=== PATIENT | female | born 1950 | race Caucasian/White ===

== ENCOUNTER 2021-07-10 09:00 | Outpatient (RCR) | payer MEDICARE, OTHER, SELFPAY ==
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
--- NOTE | 2021-04-12 11:03 | HP.PTREVAL ---
JONNY NORTON, It has been my pleasure to treat ALEJANDRO MCDONALD over the last 9 visits for T7 FX, THORACIC DDD, LUMBAR RADIC AND DDD & CHRONIC PAIN SYNDROME. Please see the progress note below for an update on the physical therapy plan of care! Subjective: PATIENT REPORTS SHE HAS LEARNED A LOT AND IS BENEFITING FROM THERAPY BUT HOPES SHE CAN MAKE A LOT MORE IMPROVEMENT. PATIENT REPORTS SHE IS STILL HAVING A LOT OF PAIN THOUGH. JO SCHEDULED NEXT THURSDAY. THIS WILL BE FIRST JO IN A LONG LONG TIME. PATIENT REPORTS SHE WANTS TO CONTINUE PT BECAUSE SHE FEELS IT IS HELPING HER. Objective/Function: PATIENT WAS SEEN TODAY FOR RE-ASSESSMENT OF PROGRESS TOWARD THE SET PT GOALS AND THE NEED FOR FURTHER PHYSICAL THERAPY VS READINESS FOR DISCHARGE. PATIENT IS MAKING SOME SLOW PROGRESS WITH AQUATIC THERAPY AND IS A GOOD CANDIDATE TO TRY TO CONTINUE PT FOR FURTHER IMPROVEMENT. UPON EXAM TODAY: THIS PATIENT AMBULATES INDEP'LY INTO PT WITHOUT ANY ASSISTIVE DEVICES OR LOSS OF BALANCE. DECREASED CADANCE. INDEP TRANSFER SIT TO STAND WITHOUT UE ASSIST and with less difficulty compared to initial eval. Motor deficit: ACE UE STRENGTH AND LE STRENGTH GROSSLY 5/5 WITH MMT'ING EXCEPT RIGHT HIP/KNEE 4/5. Sensory deficit: ACE UE AND LE LIGHT TOUCH SENSATION INTACT AND SYMMETRICAL. ROM deficit: ACE UE'S AND LE'S WFL. Dural Signs: NEGATIVE ACE UE'S AND LE'S. THORACIC MVMT LOSS: ACE ROT - MOD. Lumbar mvmt loss: flex - NIL. ext - CARROL. R SG - CARROL. L SG - CARROL. PATIENT C/O INCREASED MID BACK PAIN WITH LUMBAR AND THORACIC ROM TESTING ALL PLANES. PATIENT ALSO WITH C/O PAIN ALONG THE TOP OF HER R FOOT WITH MMT'ING. Core strength: POOR. Palpation: TENDERNESS WITH LIGHT PALPATION OF THE THORACIC AND LUMBAR SPINE REGIONS. Plan Plan: *Add step ups next as tolerated/indicated. CONTINUE 3X'S A WEEK X 10 VISITS FOR. AQUATIC THERAPY FOR PAIN RELIEF, POSTURE CORRECTION/STRENGTHENING, INSTRUCTION IN APPROPRIATE BODY MECHANICS AND ACTIVITY MODIFICATIONS. DLS STARTING WITH A NEUTRAL SPINE PROGRESSING ROM TOLERATED. ACE LE ROM, STRETCHING AND STRENGTHENING. HEP INSTRUCTION. Goals Goal 1:: DECREASE C/O BACK PAIN Goal Time Frame: 4-6 Weeks Goal Progress: Progressing Goal 2:: IMPROVE PERSONAL CARE, LIFTING, WALKING, SITTING, STANDING, SLEEPING, SOCIAL LIFE, TRAVEL AND HOMEMAKING FUNCTION. Goal Time Frame: 4-6 Weeks Goal Progress: Progressing Goal 3:: ISNTRUCT IN PROPHYLAXIS Goal Time Frame: 4-6 Weeks Goal Progress: Progressing Anticipated Interventions Patient/Client Instruction: Educate patient on: Condition, Plan of Care, Risk Factors For the Purpose of:: To improve self management Therapeutic Exercise to Include: Strength training, Body mechanics, Postural training, Flexibilty training, Neuromotor development, In an aquatic setting, Dynamic Lumbar Stabilization For the Purpose of:: To decrease pain, To improve muscle performance and motor function, To increase tolerance to activity/condition/position, To improve ability of physical actions for home/community/work/leisure Cryotherapy (ice pack, ice massage): Yes Thermo therapy (hot pack): Yes For the Purpose of:: To decrease pain, To improve nutrient delivery to tissue Please do not hesitate to contact me at [phone] by phone or if you have questions or concerns regarding this new plan of care! Sincerely, Libby Todd, PT, Cert MDT
--- NOTE | 2021-06-21 15:33 | HP.PTREVAL ---
JONNY NORTON, It has been my pleasure to treat ALEJANDRO MCDONALD over the last 11 visits for T7 FX, THORACIC DDD, LUMBAR RADIC AND DDD & CHRONIC PAIN SYNDROME. Please see the progress note below for an update on the physical therapy plan of care! Subjective: PATIENT REPORTS INCREASED LOW BACK AND RIGHT HIP PAIN SINCE LAST PT VISIT. REPORTS SHE REALLY WANTS TO GET BACK TO AQUTIC THERAPY BECAUSE IT WAS REALLY HELPING. OCCASSIONALLY HAVING RIGHT HIP NUMBNESS AND TINGLING THAT SHOOTS DOWN HER LEG TO HER FOOT. 2 JO'S SINCE LAST VISIT WITH THE LAST ONE BEING ABOUT A WEEK AGO. PATIENT REPORTS THEY HAVE HELPED HER LOW BACK PAIN A LITTLE BIT BUT NOT HER HIP AND RIGHT LE SX'S. Objective/Function: PATIENT WAS SEEN FOR A RE-ASSESSMENT TODAY AND APPEARS TO BE APPROPRIATE TO RESUME PT NOW TOLERATED WITH THE GOAL OF BECOMING INDEP WITH A POOL PROGRAM. PATIENT IS AGREEABLE. THIS PATIENT AMBULATES INDEP'LY INTO PT WITHOUT ANY ASSISTIVE DEVICES OR LOSS OF BALANCE. DECREASED CADANCE. INDEP TRANSFER SIT TO STAND WITHOUT UE ASSIST BUT DIFFICULT. Motor deficit: ACE UE STRENGTH AND LE STRENGTH GROSSLY 5/5 WITH MMT'ING EXCEPT RIGHT HIP/KNEE 4/5. Sensory deficit: ACE UE AND LE LIGHT TOUCH SENSATION INTACT AND SYMMETRICAL. ROM deficit: ACE UE'S AND LE'S WFL. Dural Signs: NEGATIVE ACE UE'S AND LE'S. THORACIC MVMT LOSS: ACE ROT - MOD. Lumbar mvmt loss: flex - NIL. ext - CARROL. R SG - CARROL. L SG - CARROL. PATIENT C/O INCREASED MID BACK PAIN WITH LUMBAR AND THORACIC ROM TESTING ALL PLANES. Core strength: POOR. Palpation: TENDERNESS WITH LIGHT PALPATION OF THE THORACIC AND LUMBAR SPINE REGIONS. Plan Plan: CONTINUE 3X'S A WEEK X 10 VISITS FOR. AQUATIC THERAPY FOR PAIN RELIEF, POSTURE CORRECTION/STRENGTHENING, INSTRUCTION IN APPROPRIATE BODY MECHANICS AND ACTIVITY MODIFICATIONS. DLS STARTING WITH A NEUTRAL SPINE PROGRESSING ROM TOLERATED. ACE LE ROM, STRETCHING AND STRENGTHENING. HEP INSTRUCTION. Balance/Gait/Functional tests - Balance/Special Test Scores Oswestry Low Back Score: 24 Goals Goal 1:: DECREASE C/O BACK PAIN Goal Time Frame: 4-6 Weeks Goal Progress: Progressing Goal 2:: IMPROVE PERSONAL CARE, LIFTING, WALKING, SITTING, STANDING, SLEEPING, SOCIAL LIFE, TRAVEL AND HOMEMAKING FUNCTION. Goal Time Frame: 4-6 Weeks Goal Progress: Progressing Goal 3:: ISNTRUCT IN PROPHYLAXIS Goal Time Frame: 4-6 Weeks Goal Progress: Progressing Anticipated Interventions Patient/Client Instruction: Educate patient on: Condition, Plan of Care, Risk Factors For the Purpose of:: To improve self management Therapeutic Exercise to Include: Strength training, Body mechanics, Postural training, Flexibilty training, Neuromotor development, In an aquatic setting, Dynamic Lumbar Stabilization For the Purpose of:: To decrease pain, To improve muscle performance and motor function, To increase tolerance to activity/condition/position, To improve ability of physical actions for home/community/work/leisure Cryotherapy (ice pack, ice massage): Yes Thermo therapy (hot pack): Yes For the Purpose of:: To decrease pain, To improve nutrient delivery to tissue Please do not hesitate to contact me at [phone] by phone or if you have questions or concerns regarding this new plan of care! Sincerely, Libby Todd, PT, Cert MDT
--- NOTE | 2021-07-10 09:57 | HP.PTREVAL ---
JONNY NORTON, It has been my pleasure to treat ALEJANDRO MCDONALD over the last 12 visits for T7 FX, THORACIC DDD, LUMBAR RADIC AND DDD & CHRONIC PAIN SYNDROME. Please see the progress note below for an update on the physical therapy plan of care! Subjective: PATIENT REPORTS THAT SINCE SHE WAS IN LAST SHE HAS SUSTAINED MULTIPLE ARM WOUNDS/CUTS. SAW DR. AQUINO A WEEK AGO AND WAS PRESCRIBED ANTIBIOTICS. NO POOL THERAPY FOR NOW. [address]TH ALISON'T [address] DR. NORTON IN PAIN MGMT PENDING IN THE NEXT WK OR TWO. PATIENT REPORTS NO SIGNIFICANT CHANGES IN HER BACK SINCE LAST RE-CHECK. PATIENT REPORTS SHE IS VERY FRUSTRATED WITH HER SKIN TEARING SO EASILY AND IT INTERFERING WITH AQUATIC THERAPY. STATES SHE CAN'T EVEN CARRY A PURSE ON HER ARM BECAUSE IT LEAVES BRUISES. STATES SHE HAS BEEN TRYING TO DO HER HOME EX'S BUT IT ISN'T THE SAME BENEFIT POOL THERAPY. PATIENT REPORTS SHE STILL DOES NOT WANT TO HAVE SURGERY WAS RECOMMENDED. Objective/Function: PATIENT WAS SEEN FOR RE-ASSESSMENT AND PROGRESS TOWARD SET PT GOALS. SHE IS CURRENTLY NOT ABLE TO GET IN THE WATER FOR THERAPY BECAUSE OF HER ARM WOUNDS. THERE ARE NO SIGNIFICANT CHANGES OVER-ALL SINCE LAST VISIT. SHE IS APPROPRIATE TO BE GIVEN A HEP AND PHYSICIAN RE-CHECK. THIS PATIENT AMBULATES INDEP'LY INTO PT WITHOUT ANY ASSISTIVE DEVICES OR LOSS OF BALANCE. DECREASED CADANCE. INDEP TRANSFER SIT TO STAND WITHOUT UE ASSIST BUT DIFFICULT. Motor deficit: ACE UE STRENGTH AND LE STRENGTH GROSSLY 5/5 WITH MMT'ING EXCEPT RIGHT HIP/KNEE 4/5. Sensory deficit: ACE UE AND LE LIGHT TOUCH SENSATION INTACT AND SYMMETRICAL. ROM deficit: ACE UE'S AND LE'S WFL. Dural Signs: NEGATIVE ACE UE'S AND LE'S. THORACIC MVMT LOSS: ACE ROT - MOD. Lumbar mvmt loss: flex - NIL. ext - CARROL. R SG - CARROL. L SG - CARROL. PATIENT C/O INCREASED MID BACK PAIN WITH LUMBAR AND THORACIC ROM TESTING ALL PLANES. Core strength: POOR. Palpation: TENDERNESS WITH LIGHT PALPATION OF THE THORACIC AND LUMBAR SPINE REGIONS. Plan Plan: FOLLOW UP WITH DR. NORTON. CONSIDER WHEN ABLE: CONTINUE 3X'S A WEEK X 10 VISITS FOR. AQUATIC THERAPY FOR PAIN RELIEF, POSTURE CORRECTION/STRENGTHENING, INSTRUCTION IN APPROPRIATE BODY MECHANICS AND ACTIVITY MODIFICATIONS. DLS STARTING WITH A NEUTRAL SPINE PROGRESSING ROM TOLERATED. ACE LE ROM, STRETCHING AND STRENGTHENING. HEP INSTRUCTION. Balance/Gait/Functional tests - Balance/Special Test Scores Oswestry Low Back Score: 24 Goals Goal 1:: DECREASE C/O BACK PAIN Goal Time Frame: 4-6 Weeks Goal Progress: Not Progressing Goal 2:: IMPROVE PERSONAL CARE, LIFTING, WALKING, SITTING, STANDING, SLEEPING, SOCIAL LIFE, TRAVEL AND HOMEMAKING FUNCTION. Goal Time Frame: 4-6 Weeks Goal Progress: Not Progressing Goal 3:: ISNTRUCT IN PROPHYLAXIS Goal Time Frame: 4-6 Weeks Goal Progress: Progressing Anticipated Interventions Patient/Client Instruction: Educate patient on: Condition, Plan of Care, Risk Factors For the Purpose of:: To improve self management Therapeutic Exercise to Include: Strength training, Body mechanics, Postural training, Flexibilty training, Neuromotor development, In an aquatic setting, Dynamic Lumbar Stabilization For the Purpose of:: To decrease pain, To improve muscle performance and motor function, To increase tolerance to activity/condition/position, To improve ability of physical actions for home/community/work/leisure Cryotherapy (ice pack, ice massage): Yes Thermo therapy (hot pack): Yes For the Purpose of:: To decrease pain, To improve nutrient delivery to tissue Please do not hesitate to contact me at [phone] by phone or if you have questions or concerns regarding this new plan of care! Sincerely, Libby Todd, PT, Cert MDT
--- NOTE | 2021-09-11 12:27 | HP.PT.NRP ---
ALEJANDRO MCDONALD was seen in my office for initial evaluation on 03/13/21. The following Plan of Care was established for this patient: Initial Frequency: 2-3x /Week Initial Duration: 4-6 Weeks Patient/Client Instruction: Educate patient on: Condition, Plan of Care, Risk Factors For the Purpose of:: To improve self management Therapeutic Exercise to Include: Strength training, Body mechanics, Postural training, Flexibilty training, Neuromotor development, In an aquatic setting, Dynamic Lumbar Stabilization For the Purpose of:: To decrease pain, To improve muscle performance and motor function, To increase tolerance to activity/condition/position, To improve ability of physical actions for home/community/work/leisure Cryotherapy (ice pack, ice massage): Yes Thermo therapy (hot pack): Yes For the Purpose of:: To decrease pain, To improve nutrient delivery to tissue This patient was last seen in our office 07/10/21. Pertinent comments regarding their Physical therapy will appear below: This patient has not returned to Physical Therapy and is appropriate to return to MD for further follow-up as needed. At this point I will be discontinuing this patient from physical therapy. I would be happy to see this patient again in the future if found appropriate by the physician. Thank you! Libby Todd, PT, Cert MDT Balance/Gait/Functional tests - Balance/Special Test Scores Oswestry Low Back Score: 24
== END 2021-07-10 19:00 | disposition home or self-care (01) ==
LOC: PT 09:00
PROVIDERS: PCP Family Medicine
DX: S22.009S Unspecified fracture of unspecified thoracic vertebra, sequela (principal); X58.XXXS Exposure to other specified factors, sequela; M46.96 Unspecified inflammatory spondylopathy, lumbar region; M54.16 Radiculopathy, lumbar region; M51.36 Other intervertebral disc degeneration, lumbar region; M79.10 Myalgia, unspecified site; G89.4 Chronic pain syndrome
CPT/HCPCS: 97113; 97162; 97164; 97530

== ENCOUNTER 2021-12-06 11:00 | Outpatient (RCR) | payer MEDICARE, OTHER, SELFPAY ==
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
--- NOTE | 2021-11-07 11:45 | HP.PTREVAL_ITS ---
OTTO ROSARIO, It has been my pleasure to treat ALEJANDRO MCDONALD over the last 8 visits for HIP PAIN, LUMBAR RADIC, DDD AND CHRONIC PAIN SYNDROME.. Please see the progress note below for an update on the physical therapy plan of care! Subjective: PATIENT REPORTS SHE FEELS BETTER WHEN SHE IS IN THE WATER AND SHE CAN DO MORE THINGS IN THE WATER. I FEEL GOOD IN THE FACT THAT I AM DOING BETTER WITH PROPER LIFTING. PATIENT SHE STILL HAS BACK PAIN AND STILL TAKES PAIN MEDICINE 2 TIMES DAY. PATIENT REPORTS SHE CAN STILL ONLY GO UP STEPS ONE AT A TIME DUE TO BACK PAIN. PATIENT IS HOPEFUL THAT IF SHE CONTINUES WATER THERAPY SHE WILL CONTINUE TO IMPROVE. STATES SHE STILL CAN'T REMEMBER HOW TO DO THE EX'S AND HOME ACTIVITIES CORRECTLY CONSISTANTLY YET AND WOULD LIKE MORE INSTRUCTION. STATES SHE FEELS LIKE SHE IS GETTING STRONGER AND WANTS TO CONTINUE WATER THERAPY. PATIENT REPORTS THAT HER BACK PAIN BEFORE SHE STARTED THERAPY WAS HORRIBLE. 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 Objective/Function: PATIENT WAS SEEN TODAY FOR RE-ASSESSMENT OF PROGRESS TOWARD THE SET PT GOALS AND THE NEED FOR FURTHER PHYSICAL THERAPY VS READINESS FOR DISCHARGE. PATIENT IS A GOOD CANDIDATE TO CONTINUE AQUATIC THERAPY BASED ON PROGRESS MADE AND ROOM FOR FURTHER IMRPOVEMENT. SHE IS TRANSFERRING SIT TO STAND BETTER AND REPORTING INCREASED TOLERANCE TO HOUSEWORK. HER CORE AND LE FUNCTIONAL STRENGTH IS SLOWLY IMPROVING AND SHE IS BECOMING INDEP WITH A POOL PROGRAM. SHE IS DEMO'ING IMPROVED ABILITY TO USE GOOD BODY MECHANCICS ADN PROPER POSTURE WITH ADL'S. PATIENT IS AGREEABLE TO CONTINUEING PT. UPON EXAM TODAY: THIS PATIENT AMBULATES INDEP'LY INTO PT WITHOUT ANY ASSISTIVE DEVICES OR LOSS OF BALANCE. DECREASED CADANCE. INDEP TRANSFER SIT TO STAND WITHOUT UE ASSIST AND LESS DIFFICULTY COMPARED TO INITIAL EVAL. Motor deficit: ACE LE STRENGTH GROSSLY 5/5 WITH MMT'ING EXCEPT RIGHT HIP/KNEE 4/5 (OLD INJURY) Sensory deficit: ACE UE AND LE LIGHT TOUCH SENSATION INTACT AND SYMMETRICAL. ROM deficit: ACE LE'S WFL. Dural Signs: NEGATIVE ACE LE'S. THORACIC MVMT LOSS: ACE ROT - MOD. Lumbar mvmt loss: flex - MIN. ext - CARROL. R SG - CARROL. L SG - CARROL. PATIENT C/O INCREASED MID BACK AND LOW BACK PAIN WITH LUMBAR AND THORACIC ROM TESTING ALL PLANES. Core strength: POOR. Palpation: TENDERNESS WITH LIGHT PALPATION OF THE THORACIC AND LUMBAR SPINE REGIONS INTO SACRUM AND HIPS. Plan Plan: CONTINUE AQUATIC THERAPY. *VERY FRAGILE SKIN*. *C/O RIGHT SHLD PAIN FOR NO APPARENT REASON - AVOID INCREASING SHLD PAIN*. AQUATIC THERAPY FOR PAIN RELIEF, POSTURE CORRECTION/STRENGTHENING, INSTRUCTION IN APPROPRIATE BODY MECHANICS AND ACTIVITY MODIFICATIONS. DLS STARTING WITH A NEUTRAL SPINE PROGRESSING ROM TOLERATED. ACE LE ROM, STRETCHING AND STRENGTHENING. HEP INSTRUCTION. Balance/Gait/Functional tests - Balance/Special Test Scores Oswestry Low Back Score: 29 Lower Extremity Functional Score: 8 Goals Goal 1:: DECREASE C/O BACK AND ACE LE SX'S. Goal Time Frame: 4-6 Weeks Goal Progress: Progressing Goal 2:: IMPROVE PERSONAL CARE, LIFTING, WALKING, SITTING, STANDING, SLEEP, SOCIAL LIFE, TRAVEL AND HOMEMAKING FUNCTION. Goal Time Frame: 4-6 Weeks Goal Progress: Progressing Goal 3:: INSTRUCT IN PROPHYLAXIS Goal Time Frame: 4-6 Weeks Goal Progress: Progressing Anticipated Interventions Patient/Client Instruction: Educate patient on: Condition, Plan of Care, Risk Factors For the Purpose of:: To improve self management Therapeutic Exercise to Include: Strength training, Body mechanics, Postural training, Flexibilty training, Gait and locomotor training, Neuromotor development, In an aquatic setting, Dynamic Lumbar Stabilization For the Purpose of:: To decrease pain, To improve nutrient delivery to tissue, To improve muscle performance and motor function, To increase tolerance to activity/condition/position, To improve ability of physical actions for home/community/work/leisure, To improve gait and locomotor functions Please do not hesitate to contact me at [phone] by phone or if you have questions or concerns regarding this new plan of care! Sincerely, Libby Todd, PT, Cert MDT
--- NOTE | 2021-12-06 11:35 | HP.PTDCSUM ---
It has been my pleasure to treat ALEJANDRO MCDONALD referred by OTTO ROSARIO, with the diagnosis of HIP PAIN, LUMBAR RADIC, DDD AND CHRONIC PAIN SYNDROME. for a total of 15 visit(s). Discharge Date: Please see the following information for a summary of their discharge status. Subjective: PATIENT REPORTS SHE IS JOINING A POOL AT AN RV PARK VERY NEAR HER HOME TO CONTINUE INDEP WATER EX. REPORTS SHE HAD A VIRTUAL CALL WITH OTTO ROSARIO CNP THURSDAY AND SHE PRESCRIBED SLEEP MEDICINE AND AGREES WITH HER CONTINUING WATER EXERCISE AT THE RV PARK. Lumbar Spine Pain Intensity (Out of 10): 7 % Improvement: 20 Objective/Function: PATIENT WAS SEEN TODAY FOR RE-ASSESSMENT OF PROGRESS TOWARD THE SET PT GOALS AND THE NEED FOR FURTHER PHYSICAL THERAPY VS READINESS FOR DISCHARGE. PATIENTS PROGRESS IS PLATEUING AND SHE IS A GOOD CANDIDATE TO BE RELEASED TO [facility] POOL PROGRAM AT THIS TIME AND FOLLOW UP WITH PHYSICIAN FOR RE-ASSESSMENT. PATIENT IS AGREEABLE. UPON EXAM TODAY: THIS PATIENT AMBULATES INDEP'LY INTO PT WITHOUT ANY ASSISTIVE DEVICES OR LOSS OF BALANCE. DECREASED CADANCE. INDEP TRANSFER SIT TO STAND WITHOUT UE ASSIST. Motor deficit: ACE LE STRENGTH GROSSLY 5/5 WITH MMT'ING EXCEPT RIGHT HIP/KNEE 4/5 (OLD INJURY) Sensory deficit: ACE UE AND LE LIGHT TOUCH SENSATION INTACT AND SYMMETRICAL. ROM deficit: ACE LE'S WFL. Dural Signs: NEGATIVE ACE LE'S. THORACIC MVMT LOSS: ACE ROT - MOD. Lumbar mvmt loss: flex - MIN. ext - CARROL. R SG - CARROL. L SG - CARROL. PATIENT C/O INCREASED MID BACK AND LOW BACK PAIN WITH LUMBAR AND THORACIC ROM TESTING ALL PLANES. Core strength: POOR. Palpation: TENDERNESS WITH LIGHT PALPATION OF THE THORACIC AND LUMBAR SPINE REGIONS INTO SACRUM AND HIPS. Goal 1:: DECREASE C/O BACK AND ACE LE SX'S. Goal Progress: Not Progressing Goal 2:: IMPROVE PERSONAL CARE, LIFTING, WALKING, SITTING, STANDING, SLEEP, SOCIAL LIFE, TRAVEL AND HOMEMAKING FUNCTION. Goal Progress: Not Progressing Goal 3:: INSTRUCT IN PROPHYLAXIS Goal Progress: Not Progressing Plan: D/C TO [facility] POOL PROGRAM TOLERATED AND PHYSICIAN FOLLOW UP FOR RE-ASSESSMENT OF ON-GOING SX'S. PATIENT IS AGREEABLE. If there are questions or concerns regarding this patient's physical therapy, please feel free to call me at [phone]. Thank you for the referral of this patient. Sincerely, Libby Todd, PT, Cert MDT Balance/Gait/Functional tests - Balance/Special Test Scores Oswestry Low Back Score: 30 Lower Extremity Functional Score: 12
== END 2021-12-06 19:00 | disposition home or self-care (01) ==
LOC: PT 11:00
PROVIDERS: PCP Family Medicine
DX: M25.559 Pain in unspecified hip (principal); M54.16 Radiculopathy, lumbar region; M51.36 Other intervertebral disc degeneration, lumbar region; G89.4 Chronic pain syndrome; Z79.899 Other long term (current) drug therapy
CPT/HCPCS: 97112; 97113; 97162; 97164